=== PATIENT | male | born 1960 | race Caucasian/White ===

== ENCOUNTER 2023-08-28 11:01 | Emergency (ER) | payer OTHER, SELFPAY ==
--- NOTE | 2023-08-28 11:03 | DI.RAD.S_ITS ---
PROCEDURE: XR WRIST LT MIN 3V INDICATIONS: Pain after fall TECHNIQUE: 4 views of the wrist were acquired. COMPARISON: None. FINDINGS: Bones: No fractures or dislocations. No suspicious bony lesions. Soft tissues: No suspicious soft tissue calcifications. IMPRESSION: No acute bony abnormality. Dictated by: Newton Sagastume M.D. on 08/28/2023 at 10:32 Approved by: Newton Sagastume M.D. on 08/28/2023 at 10:32
--- NOTE | 2023-08-28 11:03 | DI.RAD.S_ITS ---
PROCEDURE: XR HAND LT MIN 3V INDICATIONS: 4th finger injury after fall TECHNIQUE: 3 views of the hand(s) acquired. COMPARISON: None. FINDINGS: Bones: Chip fracture of the 4th proximal phalanx head on the ulnar side. Soft tissues: No suspicious soft tissue calcifications. Swelling of the 4th digit. IMPRESSION: Chip fracture of the 4th proximal phalanx head on the ulnar side. Dictated by: Newton Sagastume M.D. on 08/28/2023 at 10:30 Approved by: Newton Sagastume M.D. on 08/28/2023 at 10:31
[2023-08-28 11:10] VITALS: BP 180/68; PULSE 59; RESP 16; TEMP 36.1; O2SAT 99; BMI 24.4
--- NOTE | 2023-08-28 11:41 | PC.NURSE ---
Ring unable to be removed from swollen finger. Ring cutter used at this time to remove gold ring from left 4th finger. No complications.
--- NOTE | 2023-08-28 11:50 | ED.UPPEXIN ---
HPI - Extremity Injury (Upper) <Hortensia Kramer PA-C - Last Filed: 08/28/23 12:08> General Chief Complaint: Extremity Injury, Upper Stated Complaint: possible L/wrist and 4th finger injury from fall Time Seen by Provider: 08/28/23 11:22 Source: patient Mode of arrival: Ambulatory History of Present Illness HPI narrative: 63-year-old healthy male who was out hiking today and slipped on some mud landing on his left hand. He noted a deformity to the 4th finger and pulled on it putting it back in place. It began to swell and he came for evaluation. He wears a wedding ring on that finger that was already tight. He denies numbness tingling in the hand or wrist or fingers. He can move all of his fingers and his wrist without significant pain including the 1 he injured. Related Data Allergies Allergy/AdvReac Type Severity Reaction Status Date / Time Penicillins Allergy Verified 08/28/23 11:10 Review of Systems <Hortensia Kramer PA-C - Last Filed: 08/28/23 12:08> Review of Systems ROS Unobtainable: All systems reviewed & are unremarkable except as noted in HPI and below Patient History <Hortensia Kramer PA-C - Last Filed: 08/28/23 12:08> Social History Smoking Status: Never smoker Smoking Status: Never smoker alcohol intake frequency: 0-2 drinks per day Substance Use Type: does not use Exam <Hortensia Kramer PA-C - Last Filed: 08/28/23 12:08> Narrative Exam Narrative: GENERAL: 63 year old patient appears stated age. Well-developed, in no distress. HEAD: Atraumatic. Normocephalic. EYES: Pupils equal round and reactive. Extraocular motions intact. No scleral icterus. No injection or drainage. ENT: Nose without bleeding. EXTREMITIES: Left hand-obvious swelling deformity to the left ring finger with wedding ring intact below the swelling. Mild ecchymosis on the dorsal aspect. He is only mildly tender to palpation over the proximal phalanx. Has no tenderness in his other fingers, in his metacarpal and carpal bones. His wrist has full range of motion and intact strength against resistance. His fingers have full range of motion intact against resistance. He is brisk capillary refill, and neurovascularly intact. BACK: Nontender without deformity. No flank tenderness. NEURO: AOx3. SKIN: No rash or erythema of visible areas Initial Vital Signs Initial Vital Signs: Vital Signs Temperature 96.9 F L 08/28/23 11:10 Pulse Rate 59 L 08/28/23 11:10 Respiratory Rate 16 08/28/23 11:10 Blood Pressure 180/68 H 08/28/23 11:10 Pulse Oximetry 99 08/28/23 11:10 Oxygen Delivery Method Room Air 08/28/23 11:10 <Alex Barros DO - Last Filed: 08/28/23 13:23> Initial Vital Signs Initial Vital Signs: Vital Signs Temperature 96.9 F L 08/28/23 11:10 Pulse Rate 59 L 08/28/23 11:10 Respiratory Rate 16 08/28/23 11:10 Blood Pressure 180/68 H 08/28/23 11:10 Pulse Oximetry 99 08/28/23 11:10 Oxygen Delivery Method Room Air 08/28/23 11:10 Procedures <Hortensia Kramer PA-C - Last Filed: 08/28/23 12:08> [facility] [place] Procedure: Ring removal Location: Left 4th finger Technique/Description of procedure performed: Ring cutting saw employed to remove the ring from his finger. Successful removal with no side effects. Patient tolerated procedure: Well and No complications Course <REMA Pang Last Filed: 08/28/23 12:08> Orders Ordered: ED Orders 08/28/23 11:03 XR hand LT min 3V Stat XR wrist LT min 3V Stat Vital Signs Vital signs: Vital Signs - 8 hr 08/28/23 11:10 Temperature 96.9 F L Pulse Rate 59 L Respiratory Rate 16 Blood Pressure 180/68 H Pulse Oximetry 99 Oxygen Delivery Method Room Air <DO Rg Gallego Last Filed: 08/28/23 13:23> Orders Ordered: ED Orders 08/28/23 11:03 XR hand LT min 3V Stat XR wrist LT min 3V Stat Vital Signs Vital signs: Vital Signs - 8 hr 08/28/23 11:10 Temperature 96.9 F L Pulse Rate 59 L Respiratory Rate 16 Blood Pressure 180/68 H Pulse Oximetry 99 Oxygen Delivery Method Room Air MDM - Extremity Injury (Upper) <REMA Pang Last Filed: 08/28/23 12:08> Imaging Data Extremity x-ray #1: Radiologist's Impression: PROCEDURE: XR HAND LT MIN 3V INDICATIONS: 4th finger injury after fall TECHNIQUE: 3 views of the hand(s) acquired. COMPARISON: None. FINDINGS: Bones: Chip fracture of the 4th proximal phalanx head on the ulnar side. Soft tissues: No suspicious soft tissue calcifications. Swelling of the 4th digit. IMPRESSION: Chip fracture of the 4th proximal phalanx head on the ulnar side. Dictated by: Newton Sagastume M.D. on 08/28/2023 at 10:30 Approved by: Newton Sagastume M.D. on 08/28/2023 at 10:31 Extremity x-ray #2: Radiologist's Impression: PROCEDURE: XR WRIST LT MIN 3V INDICATIONS: Pain after fall TECHNIQUE: 4 views of the wrist were acquired. COMPARISON: None. FINDINGS: Bones: No fractures or dislocations. No suspicious bony lesions. Soft tissues: No suspicious soft tissue calcifications. IMPRESSION: No acute bony abnormality. Dictated by: Newton Sagastume M.D. on 08/28/2023 at 10:32 Approved by: Newton Sagastume M.D. on 08/28/2023 at 10:32 [facility] Narrative Medical decision making narrative: This is a 63-year-old generally healthy male who is visiting from out of town and slipped due to med landing on his left hand. He has a chip fracture of the proximal head of the phalanx. He is neurovascularly intact with good range of motion. His ring was removed with his consent. He was placed in a foam finger splint and az taped. Instructions to keep the hand elevated and return to normal activity as comfort allows. As he his regular doctor in [place] prn. This case was discussed with who agrees with the plan. Discharge Plan Departure Patient Disposition: Home Clinical Impression: Finger fracture, left Qualifiers: Encounter type: initial encounter Finger: ring finger Fracture type: closed Phalanx: middle Fracture alignment: nondisplaced Qualified Code(s): S62.655A - Nondisplaced fracture of middle phalanx of left ring finger, initial encounter for closed fracture Activity Restrictions/Additional Instructions: You have what is called a chip fracture of the proximal bone a few 4th finger. These do not require any special treatment but immobilization until you feel comfortable is good. Keep the hand elevated as much as he can to help reduce swelling. Consider sleeping with a pillow under your hand at night. Take Tylenol as needed for pain. See your primary doctor if you have further questions about the finger healing if you feel there is not a complete resolution of the function. It was a pleasure to take care of you today. Referrals: Miscellaneous,Doctor, [Primary Care Provider] - Stand Alone Forms: Patient Portal/API ED Sign-out <Alex Barros, - Last Filed: 08/28/23 13:23> Cosign ED Attending Cosignature Attestation: Dr Barros Co-Sign Statement: I was available for consultation during this patient's emergency department visit. This chart is signed by myself for administrative purposes only. I did not have direct contact with this patient during this visit. They were seen independently by the APC.
== END 2023-08-28 11:48 | disposition home or self-care (01) ==
PROVIDERS: Emergency Provider Physician Assistant
DX: S62.615A Displaced fracture of proximal phalanx of left ring finger, initial encounter for closed fracture (principal); W01.0XXA Fall on same level from slipping, tripping and stumbling without subsequent striking against object, initial encounter; Y93.01 Activity, walking, marching and hiking; Y92.9 Unspecified place or not applicable
CPT/HCPCS: 29130; 73110; 73130; 99281; 99283